=== PATIENT | female | born 1975 | race Caucasian/White ===

== ENCOUNTER 2017-05-15 21:07 | Inpatient (IN) | payer OTHER, MEDICAID ==
[2017-05-15] MEDS: ALBUTEROL 0.083% (NEB) 2.5 MG/3 ML AMP HHN (23:12)
[2017-05-15] MEDS: IPRATROPIUM (NEB) 0.5 MG/2.5 ML AMP INH (23:13)
[2017-05-15] MEDS: SOD CHLORIDE 0.9% 500 ML IV (23:56)
[2017-05-16 00:02] LABS: ADD MAN DIFF? NO
[2017-05-16 00:04] LABS: WHITE BLOOD COUNT 12.6 10^3/ul (4.8-10.8)
[2017-05-16 00:04] LABS: ABNORMAL IP MESSAGE 1; BASOPHIL # 0.1 10^3/ul (0.0-0.1); BASOPHILS % 0.4 % (0.0-2.0); EOSINOPHILS % 0.2 % (0.0-7.0); HEMATOCRIT 39.6 % (37.0-47.0); HEMOGLOBIN 11.5 g/dl (12.0-16.0); LYMPHOCYTES # 2.1 10^3/ul (0.8-2.9); LYMPHOCYTES % 16.7 % (15.0-51.0); MEAN CORPUSCULAR HEMOGLOBIN 21.7 pg (29.0-33.0); MEAN CORPUSCULAR VOLUME 74.9 fl (82.0-101.0); MEAN PLATELET VOLUME 10.2 fl (7.4-10.4); MONOCYTE # 1.3 10^3/ul (0.3-0.9); MONOCYTES % 10.4 % (0.0-11.0); NEUTROPHILS % 71.9 % (39.0-77.0); NUCLEATED RED BLOOD CELLS # 0.1 10^3/ul (0.0-0.0); NUCLEATED RED BLOOD CELLS% 0.5 /100WBC (0.0-0.0); PLATELET COUNT 332 10^3/UL (140-415); RED BLOOD COUNT 5.29 10^6/ul (4.20-5.40); RED CELL DISTRIBUTION WIDTH 25.7 % (11.5-14.5)
[2017-05-16 00:29] LABS: ALANINE AMINOTRANSFERASE 39 IU/L (13-69); ALBUMIN/GLOBULIN RATIO 0.69; ALKALINE PHOSPHATASE 113 IU/L (42-121); ANION GAP 16 (8-16); ASPARTATE AMINO TRANSFERASE 37 IU/L (15-46); BILIRUBIN,INDIRECT 1.3 mg/dl (0-1.1); BILIRUBIN,TOTAL 1.8 mg/dl (0.2-1.3); BLOOD UREA NITROGEN 15 mg/dl (7-20); CALCIUM 8.7 mg/dl (8.4-10.2); CARBON DIOXIDE 23 mmol/L (21-31); CHLORIDE 105 mmol/L (97-110); CREATININE 0.67 mg/dl (0.44-1.00); GLUCOSE 118 mg/dl (70-220); POTASSIUM 4.3 mmol/L (3.5-5.1); SODIUM 140 mmol/L (135-144); TOTAL PROTEIN 7.3 g/dl (6.1-8.1)
[2017-05-16 00:33] LABS: LACTIC ACID 2.2 mmol/L (0.5-2.0)
[2017-05-16 00:34] LABS: POSITIVE DIFF @See below
[2017-05-16 00:38] LABS: B-TYPE NATRIURETIC PEPTIDE 2480 PG/ML (0-125); TROPONIN-I 0.053 ng/ml (0.00-0.12)
[2017-05-16] MEDS: SODIUM CHLORIDE 0.9% 1L BAG IV* (00:48)
[2017-05-16] MEDS: CEFEPIME 2GM/50 ML (PMX) 50 ML IVPB (00:49)
[2017-05-16] MEDS: VANCOMYCIN 1 GM (PMX) 250 ML IVPB (01:18)
[2017-05-16] MEDS ORDERED: SOD CHLORIDE 0.9% 1,000 ML IV (03:30)
[2017-05-16] MEDS ORDERED: SOD CHLORIDE 0.9% 250 ML IV (03:30)
[2017-05-16] MEDS: morphine 2 MG INJ IV ×2 (03:57→21:50)
[2017-05-16 04:32] LABS: LACTIC ACID 2.2 mmol/L (0.5-2.0)
[2017-05-16] MEDS: LACTATED RINGER'S 1,000 ML IV (05:40)
[2017-05-16] MEDS ORDERED: NACL 0.9% 3 ML SYG IV (06:00)
[2017-05-16] MEDS ORDERED: ALBUTEROL/IPRATROPIUM (NEB) 3 ML AMP HHN (06:00)
[2017-05-16] MEDS: CLINDAMYCIN 600 MG/D5W (PMX) 50 ML IVPB ×3 (06:00→14:31)
[2017-05-16 08:11] LABS: ADD MAN DIFF? NO
[2017-05-16 08:14] LABS: ABNORMAL IP MESSAGE 1; BASOPHIL # 0.1 10^3/ul (0.0-0.1); BASOPHILS % 0.4 % (0.0-2.0); EOSINOPHILS # 0.1 10^3/ul (0.0-0.5); EOSINOPHILS % 0.4 % (0.0-7.0); HEMATOCRIT 37.9 % (37.0-47.0); HEMOGLOBIN 11.1 g/dl (12.0-16.0); LYMPHOCYTES # 1.5 10^3/ul (0.8-2.9); MEAN CORPUSCULAR HGB CONC 29.3 g/dl (32.0-37.0); MEAN CORPUSCULAR VOLUME 75.2 fl (82.0-101.0); MEAN PLATELET VOLUME 10.6 fl (7.4-10.4); MONOCYTE # 1.1 10^3/ul (0.3-0.9); MONOCYTES % 9.9 % (0.0-11.0); NEUTROPHIL # 8.4 10^3/ul (1.6-7.5); NEUTROPHILS % 75.9 % (39.0-77.0); NUCLEATED RED BLOOD CELLS% 0.2 /100WBC (0.0-0.0); PLATELET COUNT 327 10^3/UL (140-415); RED BLOOD COUNT 5.04 10^6/ul (4.20-5.40); RED CELL DISTRIBUTION WIDTH 25.2 % (11.5-14.5)
[2017-05-16 08:14] LABS: WHITE BLOOD COUNT 11.1 10^3/ul (4.8-10.8)
[2017-05-16 08:15] LABS: POSITIVE DIFF @See below
[2017-05-16 08:43] LABS: ALANINE AMINOTRANSFERASE 33 IU/L (13-69); ALBUMIN 2.8 g/dl (3.3-4.9); ALBUMIN/GLOBULIN RATIO 0.75; ALKALINE PHOSPHATASE 105 IU/L (42-121); ANION GAP 13 (8-16); ASPARTATE AMINO TRANSFERASE 37 IU/L (15-46); BILIRUBIN,INDIRECT 1.3 mg/dl (0-1.1); BLOOD UREA NITROGEN 14 mg/dl (7-20); CALCIUM 8.4 mg/dl (8.4-10.2); CARBON DIOXIDE 22 mmol/L (21-31); CHLORIDE 108 mmol/L (97-110); CREATININE 0.59 mg/dl (0.44-1.00); GLUCOSE 110 mg/dl (70-220); POTASSIUM 4.3 mmol/L (3.5-5.1); SODIUM 139 mmol/L (135-144); TOTAL PROTEIN 6.5 g/dl (6.1-8.1)
[2017-05-16 08:53] LABS: LACTIC ACID 3.3 mmol/L (0.5-2.0)
[2017-05-16] MEDS ORDERED: VANCOMYCIN IV PER PHARMACY XX (09:00)
[2017-05-16] MEDS: CEFEPIME 1GM/50 ML (PMX) 50 ML IVPB (09:27)
[2017-05-16] MEDS: FUROSEMIDE 20 MG INJ IV ×2 (09:27→14:31)
[2017-05-16] MEDS: HEPARIN 5,000 UNIT/0.5 ML VIAL SC ×2 (09:28→22:10)
[2017-05-16] MEDS: VANCOMYCIN 1 GM 250 ML IVPB ×3 (10:00→11:57)
[2017-05-16] MEDS: CLINDAMYCIN 150 MG CAP PO ×2 (16:00→21:50)
[2017-05-17 01:03] LABS: LACTIC ACID 2.8 mmol/L (0.5-2.0)
[2017-05-17] MEDS: SOD CHLORIDE 0.9% 500 ML IV (01:30)
[2017-05-17] MEDS: GUAIFENESIN/DM 5ML CUP PO (01:30)
[2017-05-17] MEDS: morphine 2 MG INJ IV ×3 (06:06→16:41)
[2017-05-17] MEDS: CLINDAMYCIN 150 MG CAP PO ×3 (06:06→23:03)
[2017-05-17 07:21] LABS: ADD UMIC YES; UR ASCORBIC ACID 40 mg/dL (NEGATIVE); UR BACTERIA FEW /HPF (NONE SEEN); UR BILIRUBIN (Dip) 1+ mg/dL (NEGATIVE); UR BLOOD (Dip) NEGATIVE (NEGATIVE); UR CLARITY SLIGHTLY CLOUDY (CLEAR); UR COLOR AMBER (YELLOW); UR GLUCOSE (Dip) NEGATIVE (NEGATIVE); UR KETONES (Dip) NEGATIVE (NEGATIVE); UR LEUKOCYTE ESTERASE (Dip) NEGATIVE Leu/ul (NEGATIVE); UR MUCUS FEW /HPF (NONE SEEN); UR NITRITE (Dip) NEGATIVE (NEGATIVE); UR RBC 2 /HPF (0-5); UR SPECIFIC GRAVITY (Dip) 1.023 (1.003-1.030); UR SQUAMOUS EPITHELIAL CELL FEW /HPF (FEW); UR TOTAL PROTEIN (Dip) 1+ mg/dl (NEGATIVE); UR UROBILINOGEN (Dip) 2+ mg/dL (NEGATIVE); UR WBC 1 /HPF (0-5)
[2017-05-17 08:04] LABS: ADD MAN DIFF? NO; HAAIG REFLEX REFLEX FILED
[2017-05-17 08:12] LABS: ABNORMAL IP MESSAGE 1; BASOPHILS % 0.4 % (0.0-2.0); EOSINOPHILS # 0.1 10^3/ul (0.0-0.5); EOSINOPHILS % 0.8 % (0.0-7.0); HEMOGLOBIN 11.3 g/dl (12.0-16.0); LYMPHOCYTES # 1.2 10^3/ul (0.8-2.9); LYMPHOCYTES % 11.6 % (15.0-51.0); MEAN CORPUSCULAR HEMOGLOBIN 21.7 pg (29.0-33.0); MEAN PLATELET VOLUME 10.3 fl (7.4-10.4); MONOCYTE # 1.1 10^3/ul (0.3-0.9); MONOCYTES % 10.8 % (0.0-11.0); NEUTROPHIL # 8.1 10^3/ul (1.6-7.5); NUCLEATED RED BLOOD CELLS # 0.1 10^3/ul (0.0-0.0); NUCLEATED RED BLOOD CELLS% 0.5 /100WBC (0.0-0.0); PLATELET COUNT 279 10^3/UL (140-415); RED CELL DISTRIBUTION WIDTH 25.5 % (11.5-14.5)
[2017-05-17 08:12] LABS: WHITE BLOOD COUNT 10.6 10^3/ul (4.8-10.8)
[2017-05-17 08:19] LABS: POSITIVE DIFF @See below
[2017-05-17 08:30] LABS: LACTIC ACID 2.4 mmol/L (0.5-2.0)
[2017-05-17 08:35] LABS: IRON 34 ug/dl (35-150)
[2017-05-17 08:38] LABS: ALANINE AMINOTRANSFERASE 32 IU/L (13-69); ALBUMIN 2.4 g/dl (3.3-4.9); ALBUMIN/GLOBULIN RATIO 0.66; ALKALINE PHOSPHATASE 103 IU/L (42-121); ANION GAP 16 (8-16); ASPARTATE AMINO TRANSFERASE 28 IU/L (15-46); BILIRUBIN,INDIRECT 1.2 mg/dl (0-1.1); BILIRUBIN,TOTAL 1.8 mg/dl (0.2-1.3); BLOOD UREA NITROGEN 14 mg/dl (7-20); CALCIUM 8.4 mg/dl (8.4-10.2); CARBON DIOXIDE 22 mmol/L (21-31); CHLORIDE 105 mmol/L (97-110); CREATININE 0.59 mg/dl (0.44-1.00); GLUCOSE 116 mg/dl (70-220); SODIUM 139 mmol/L (135-144)
[2017-05-17 08:40] LABS: ANION GAP 14 (8-16); BLOOD UREA NITROGEN 15 mg/dl (7-20); CALCIUM 8.3 mg/dl (8.4-10.2); CARBON DIOXIDE 20 mmol/L (21-31); CHLORIDE 107 mmol/L (97-110); CREATININE 0.59 mg/dl (0.44-1.00); GLUCOSE 113 mg/dl (70-220); MAGNESIUM 1.7 mg/dl (1.7-2.5); PHOSPHORUS 2.3 mg/dl (2.5-4.9); POTASSIUM 4.6 mmol/L (3.5-5.1); SODIUM 136 mmol/L (135-144)
[2017-05-17 08:44] LABS: % IRON SATURATION 9 % SAT (22-52); TOTAL IRON BINDING CAPACITY 360 ug/dl (241-421)
[2017-05-17] MEDS: HEPARIN 5,000 UNIT/0.5 ML VIAL SC ×2 (09:00→21:24)
[2017-05-17] MEDS: FUROSEMIDE 20 MG INJ IV ×2 (09:00→17:39)
[2017-05-17 09:15] LABS: HEPATITIS B SURFACE ANTIGEN NEGATIVE (NEGATIVE)
[2017-05-17 09:24] LABS: HEPATITIS B CORE ANTIBODY NEGATIVE (NEGATIVE); HEPATITIS C VIRAL ANTIBODY NEGATIVE (NEGATIVE)
[2017-05-17] MEDS: ACETAMINOPHEN 325 MG TAB PO (21:08)
[2017-05-18] MEDS: morphine 2 MG INJ IV ×3 (02:19→23:16)
[2017-05-18 06:51] LABS: ADD MAN DIFF? NO
[2017-05-18 06:56] LABS: WHITE BLOOD COUNT 11.2 10^3/ul (4.8-10.8)
[2017-05-18 06:56] LABS: ABNORMAL IP MESSAGE 1; BASOPHILS % 0.4 % (0.0-2.0); EOSINOPHILS # 0.1 10^3/ul (0.0-0.5); EOSINOPHILS % 0.6 % (0.0-7.0); HEMATOCRIT 38.4 % (37.0-47.0); HEMOGLOBIN 11.4 g/dl (12.0-16.0); LYMPHOCYTES # 1.4 10^3/ul (0.8-2.9); LYMPHOCYTES % 12.4 % (15.0-51.0); MEAN CORPUSCULAR HEMOGLOBIN 22.2 pg (29.0-33.0); MEAN CORPUSCULAR HGB CONC 29.7 g/dl (32.0-37.0); MEAN CORPUSCULAR VOLUME 74.7 fl (82.0-101.0); MEAN PLATELET VOLUME 10.3 fl (7.4-10.4); MONOCYTE # 1.2 10^3/ul (0.3-0.9); MONOCYTES % 10.2 % (0.0-11.0); NEUTROPHIL # 8.5 10^3/ul (1.6-7.5); NEUTROPHILS % 75.8 % (39.0-77.0); NUCLEATED RED BLOOD CELLS # 0.1 10^3/ul (0.0-0.0); NUCLEATED RED BLOOD CELLS% 0.6 /100WBC (0.0-0.0); PLATELET COUNT 299 10^3/UL (140-415); RED BLOOD COUNT 5.14 10^6/ul (4.20-5.40); RED CELL DISTRIBUTION WIDTH 25.8 % (11.5-14.5)
[2017-05-18] MEDS: FUROSEMIDE 20 MG INJ IV (06:56)
[2017-05-18] MEDS: CLINDAMYCIN 150 MG CAP PO ×3 (06:57→21:36)
[2017-05-18 06:59] LABS: POSITIVE DIFF @See below
[2017-05-18 07:30] LABS: ANION GAP 11 (8-16); BLOOD UREA NITROGEN 13 mg/dl (7-20); CALCIUM 8.1 mg/dl (8.4-10.2); CARBON DIOXIDE 24 mmol/L (21-31); CHLORIDE 105 mmol/L (97-110); CREATININE 0.62 mg/dl (0.44-1.00); GLUCOSE 113 mg/dl (70-220); MAGNESIUM 1.8 mg/dl (1.7-2.5); POTASSIUM 3.7 mmol/L (3.5-5.1); SODIUM 136 mmol/L (135-144)
[2017-05-18 08:01] LABS: HIV 1&2 ANTIBODY NEGATIVE (NEGATIVE)
[2017-05-18] MEDS: HEPARIN 5,000 UNIT/0.5 ML VIAL SC ×2 (09:00→21:52)
[2017-05-18 13:53] LABS: CREATININE,URINE RANDOM 119.03 mg/dl (20-320)
[2017-05-18] MEDS ORDERED: BARIUM SULF 2% 450 ML BTL (BERRY SMOOTHIE) PO (14:30)
[2017-05-18] MEDS: POLYETHYLENE GLYCOL 17 GM PACKET PO (14:34)
[2017-05-18 15:49] LABS: RHEUMATOID FACTOR NEGATIVE (NEGATIVE)
[2017-05-18] MEDS: FUROSEMIDE 40 MG INJ IV (18:34)
[2017-05-18 19:27] LABS: COLLECTION PERIOD 24 hrs
[2017-05-18 20:04] LABS: VOLUME 2750 mls
[2017-05-19 03:38] LABS: PROTEIN, TOTAL 5.8 g/dL (6.1-8.1)
[2017-05-19] MEDS: CLINDAMYCIN 150 MG CAP PO ×3 (06:55→21:28)
[2017-05-19] MEDS: FUROSEMIDE 40 MG INJ IV ×2 (06:56→18:16)
[2017-05-19 07:49] LABS: ADD MAN DIFF? NO
[2017-05-19 07:52] LABS: ABNORMAL IP MESSAGE 1; BASOPHILS % 0.2 % (0.0-2.0); EOSINOPHILS % 0.2 % (0.0-7.0); HEMATOCRIT 37.2 % (37.0-47.0); HEMOGLOBIN 11.2 g/dl (12.0-16.0); LYMPHOCYTES # 1.4 10^3/ul (0.8-2.9); LYMPHOCYTES % 10.6 % (15.0-51.0); MEAN CORPUSCULAR HEMOGLOBIN 22.1 pg (29.0-33.0); MEAN CORPUSCULAR HGB CONC 30.1 g/dl (32.0-37.0); MEAN CORPUSCULAR VOLUME 73.4 fl (82.0-101.0); MEAN PLATELET VOLUME 10.5 fl (7.4-10.4); MONOCYTE # 1.3 10^3/ul (0.3-0.9); MONOCYTES % 9.3 % (0.0-11.0); NEUTROPHIL # 10.6 10^3/ul (1.6-7.5); NEUTROPHILS % 79.1 % (39.0-77.0); NUCLEATED RED BLOOD CELLS # 0.1 10^3/ul (0.0-0.0); NUCLEATED RED BLOOD CELLS% 0.5 /100WBC (0.0-0.0); PLATELET COUNT 271 10^3/UL (140-415); RED BLOOD COUNT 5.07 10^6/ul (4.20-5.40); RED CELL DISTRIBUTION WIDTH 26.6 % (11.5-14.5)
[2017-05-19 07:52] LABS: WHITE BLOOD COUNT 13.4 10^3/ul (4.8-10.8)
[2017-05-19 07:55] LABS: POSITIVE DIFF @See below
[2017-05-19] MEDS: morphine 2 MG INJ IV (08:13)
[2017-05-19] MEDS: HEPARIN 5,000 UNIT/0.5 ML VIAL SC ×2 (08:14→22:17)
[2017-05-19] MEDS: POLYETHYLENE GLYCOL 17 GM PACKET PO ×2 (08:20→11:07)
[2017-05-19 08:24] LABS: ALANINE AMINOTRANSFERASE 30 IU/L (13-69); ALBUMIN 2.6 g/dl (3.3-4.9); ALBUMIN/GLOBULIN RATIO 0.65; ALKALINE PHOSPHATASE 128 IU/L (42-121); ANION GAP 18 (8-16); ASPARTATE AMINO TRANSFERASE 37 IU/L (15-46); BILIRUBIN,TOTAL 1.8 mg/dl (0.2-1.3); BLOOD UREA NITROGEN 12 mg/dl (7-20); CARBON DIOXIDE 24 mmol/L (21-31); CHLORIDE 100 mmol/L (97-110); CREATININE 0.56 mg/dl (0.44-1.00); GLUCOSE 105 mg/dl (70-220); POTASSIUM 3.5 mmol/L (3.5-5.1); SODIUM 138 mmol/L (135-144); TOTAL PROTEIN 6.6 g/dl (6.1-8.1)
[2017-05-19] MEDS: SENNA TAB PO ×2 (11:07→21:29)
[2017-05-19 14:52] LABS: ANA SCREEN NEGATIVE (NEGATIVE)
[2017-05-19 17:06] LABS: ALBUMIN 2.1 g/dL (3.8-4.8); ALPHA-1-GLOBULINS 0.5 g/dL (0.2-0.3); ALPHA-2-GLOBULINS 0.8 g/dL (0.5-0.9); BETA 2 GLOBULINS 0.4 g/dL (0.2-0.5); BETA GLOBULINS 0.5 g/dL (0.4-0.6); GAMMA GLOBULINS 1.7 g/dL (0.8-1.7)
[2017-05-19] MEDS: ACETAMINOPHEN 325 MG TAB PO (18:16)
[2017-05-20] MEDS: HYDROCODONE/APAP (5/325) TAB PO (05:49)
[2017-05-20] MEDS: CLINDAMYCIN 150 MG CAP PO (05:49)
[2017-05-20] MEDS: FUROSEMIDE 40 MG INJ IV ×2 (05:50→18:19)
[2017-05-20 08:05] LABS: ANION GAP 17 (8-16); BLOOD UREA NITROGEN 11 mg/dl (7-20); CALCIUM 8.1 mg/dl (8.4-10.2); CARBON DIOXIDE 24 mmol/L (21-31); CHLORIDE 99 mmol/L (97-110); CREATININE 0.54 mg/dl (0.44-1.00); GLUCOSE 126 mg/dl (70-220); MAGNESIUM 1.7 mg/dl (1.7-2.5); POTASSIUM 3.1 mmol/L (3.5-5.1); SODIUM 137 mmol/L (135-144)
[2017-05-20] MEDS: POLYETHYLENE GLYCOL 17 GM PACKET PO (09:14)
[2017-05-20] MEDS: SENNA TAB PO ×2 (09:14→20:49)
[2017-05-20] MEDS: HEPARIN 5,000 UNIT/0.5 ML VIAL SC ×2 (09:18→20:54)
[2017-05-20] MEDS: POTASSIUM CHLORIDE (SR) 20 MEQ TAB PO ×2 (10:48→20:49)
[2017-05-20] MEDS ORDERED: HYDROCORTISONE 1% 28.35 GM OINT TOP (15:30)
[2017-05-20] MEDS: HYDROCORTISONE 1% 28.35 GM OINT TOP (16:42)
[2017-05-20] MEDS: DIPHENHYDRAMINE 25 MG CAP PO (20:49)
[2017-05-21] MEDS: HYDROCODONE/APAP (5/325) TAB PO ×2 (04:52→21:33)
[2017-05-21] MEDS: FUROSEMIDE 40 MG INJ IV ×2 (05:08→18:56)
[2017-05-21 09:00] LABS: ANION GAP 15 (8-16); BLOOD UREA NITROGEN 13 mg/dl (7-20); CALCIUM 8.2 mg/dl (8.4-10.2); CARBON DIOXIDE 27 mmol/L (21-31); CHLORIDE 98 mmol/L (97-110); GLUCOSE 127 mg/dl (70-220); MAGNESIUM 1.7 mg/dl (1.7-2.5); POTASSIUM 3.7 mmol/L (3.5-5.1); SODIUM 136 mmol/L (135-144)
[2017-05-21] MEDS: POLYETHYLENE GLYCOL 17 GM PACKET PO (09:11)
[2017-05-21] MEDS: SENNA TAB PO ×2 (09:11→21:01)
[2017-05-21] MEDS: HYDROCORTISONE 1% 28.35 GM OINT TOP (09:11)
[2017-05-21] MEDS: HEPARIN 5,000 UNIT/0.5 ML VIAL SC ×2 (09:20→21:05)
[2017-05-21 17:24] LABS: ANTI-DNA (DOUBLE STRANDED) <95 U/mL (< 301)
[2017-05-21] MEDS: DIPHENHYDRAMINE 25 MG CAP PO (21:32)
[2017-05-22] MEDS: FUROSEMIDE 40 MG INJ IV ×2 (06:36→18:23)
[2017-05-22] MEDS: SENNA TAB PO ×2 (08:51→20:13)
[2017-05-22] MEDS: POLYETHYLENE GLYCOL 17 GM PACKET PO (08:51)
[2017-05-22] MEDS: HYDROCORTISONE 1% 28.35 GM OINT TOP (08:52)
[2017-05-22] MEDS: HEPARIN 5,000 UNIT/0.5 ML VIAL SC ×2 (09:09→20:13)
[2017-05-22 11:36] LABS: ANION GAP 15 (8-16); BLOOD UREA NITROGEN 12 mg/dl (7-20); CALCIUM 7.9 mg/dl (8.4-10.2); CARBON DIOXIDE 25 mmol/L (21-31); CHLORIDE 99 mmol/L (97-110); CREATININE 0.59 mg/dl (0.44-1.00); GLUCOSE 120 mg/dl (70-220); MAGNESIUM 1.6 mg/dl (1.7-2.5); POTASSIUM 3.7 mmol/L (3.5-5.1); SODIUM 135 mmol/L (135-144)
[2017-05-22] MEDS: HYDROCODONE/APAP (5/325) TAB PO (20:14)
[2017-05-23 05:17] LABS: ADD MAN DIFF? NO
[2017-05-23 05:20] LABS: WHITE BLOOD COUNT 12.1 10^3/ul (4.8-10.8)
[2017-05-23 05:20] LABS: ABNORMAL IP MESSAGE 1; BASOPHILS % 0.2 % (0.0-2.0); EOSINOPHILS % 0.2 % (0.0-7.0); HEMATOCRIT 39.1 % (37.0-47.0); HEMOGLOBIN 11.7 g/dl (12.0-16.0); LYMPHOCYTES # 1.6 10^3/ul (0.8-2.9); LYMPHOCYTES % 13.1 % (15.0-51.0); MEAN CORPUSCULAR HEMOGLOBIN 22.1 pg (29.0-33.0); MEAN CORPUSCULAR HGB CONC 29.9 g/dl (32.0-37.0); MEAN CORPUSCULAR VOLUME 73.8 fl (82.0-101.0); MEAN PLATELET VOLUME 10.4 fl (7.4-10.4); MONOCYTE # 1.1 10^3/ul (0.3-0.9); MONOCYTES % 8.8 % (0.0-11.0); NEUTROPHIL # 9.3 10^3/ul (1.6-7.5); NUCLEATED RED BLOOD CELLS% 0.3 /100WBC (0.0-0.0); PLATELET COUNT 250 10^3/UL (140-415); RED CELL DISTRIBUTION WIDTH 26.9 % (11.5-14.5)
[2017-05-23 05:24] LABS: POSITIVE DIFF @See below
[2017-05-23] MEDS: FUROSEMIDE 40 MG INJ IV ×2 (05:42→18:00)
[2017-05-23 06:12] LABS: ANION GAP 15 (8-16); BLOOD UREA NITROGEN 11 mg/dl (7-20); CALCIUM 8.3 mg/dl (8.4-10.2); CARBON DIOXIDE 29 mmol/L (21-31); CHLORIDE 98 mmol/L (97-110); CREATININE 0.66 mg/dl (0.44-1.00); GLUCOSE 92 mg/dl (70-220); POTASSIUM 3.6 mmol/L (3.5-5.1); SODIUM 138 mmol/L (135-144)
[2017-05-23] MEDS: SENNA TAB PO ×2 (09:02→20:20)
[2017-05-23] MEDS: HEPARIN 5,000 UNIT/0.5 ML VIAL SC ×2 (09:24→20:20)
[2017-05-23] MEDS: HYDROCORTISONE 1% 28.35 GM OINT TOP (13:48)
[2017-05-23] MEDS: SOD FERRIC GLUC COMPLX 125 MG in SOD CHLORIDE 0.9% 100 ML IVPB (17:00)
[2017-05-23] MEDS: HYDROCODONE/APAP (5/325) TAB PO (17:20)
[2017-05-24 03:43] LABS: AADO2 Arterial 136.3 mmHg (7.0-24.0); Allen Test ACCEPTAB; Arterial Base Excess 8.7 mmol/L (-3.0-3); Arterial Blood Gas Oxygen Sat 90.8 mmHG (95.0-98.0); Arterial COHb 1.3 % (0.0-3.0); Arterial Fraction of Oxyhgb 89.3 % (93.0-99.0); Arterial HCO3 31.5 mmol/L (22.0-26.0); Arterial MetHb 0.3 % (0.0-1.5); Arterial Total Hemglobin 12.2 g/dl (12.0-18.0); Arterial pCO2 36.9 mmhg (35-45); MODE NASAL CANNULA; Site Right Radial
[2017-05-24] MEDS: ALBUMIN HUMAN 25% 100 ML IV (04:56)
[2017-05-24 05:39] LABS: ADD MAN DIFF? NO
[2017-05-24 05:44] LABS: WHITE BLOOD COUNT 11.8 10^3/ul (4.8-10.8)
[2017-05-24 05:44] LABS: ABNORMAL IP MESSAGE 1; BASOPHILS % 0.3 % (0.0-2.0); HEMATOCRIT 35.9 % (37.0-47.0); HEMOGLOBIN 10.6 g/dl (12.0-16.0); LYMPHOCYTES # 1.1 10^3/ul (0.8-2.9); LYMPHOCYTES % 9.3 % (15.0-51.0); MEAN CORPUSCULAR HEMOGLOBIN 21.7 pg (29.0-33.0); MEAN CORPUSCULAR HGB CONC 29.5 g/dl (32.0-37.0); MEAN CORPUSCULAR VOLUME 73.6 fl (82.0-101.0); MEAN PLATELET VOLUME 10.5 fl (7.4-10.4); MONOCYTE # 0.9 10^3/ul (0.3-0.9); MONOCYTES % 7.4 % (0.0-11.0); NEUTROPHIL # 9.7 10^3/ul (1.6-7.5); NEUTROPHILS % 82.1 % (39.0-77.0); NUCLEATED RED BLOOD CELLS% 0.3 /100WBC (0.0-0.0); PLATELET COUNT 241 10^3/UL (140-415); RED BLOOD COUNT 4.88 10^6/ul (4.20-5.40); RED CELL DISTRIBUTION WIDTH 26.6 % (11.5-14.5)
[2017-05-24 05:46] LABS: POSITIVE DIFF @See below
[2017-05-24] MEDS: FUROSEMIDE 40 MG INJ IV ×2 (06:34→18:47)
[2017-05-24 06:43] LABS: ANION GAP 11 (8-16); BLOOD UREA NITROGEN 13 mg/dl (7-20); CARBON DIOXIDE 32 mmol/L (21-31); CHLORIDE 97 mmol/L (97-110); CREATININE 0.64 mg/dl (0.44-1.00); GLUCOSE 117 mg/dl (70-220); MAGNESIUM 1.8 mg/dl (1.7-2.5); PHOSPHORUS 2.7 mg/dl (2.5-4.9); POTASSIUM 3.6 mmol/L (3.5-5.1); SODIUM 136 mmol/L (135-144)
[2017-05-24] MEDS: SENNA TAB PO ×2 (08:49→20:13)
[2017-05-24] MEDS: HEPARIN 5,000 UNIT/0.5 ML VIAL SC ×2 (08:54→20:21)
[2017-05-24] MEDS: HYDROCORTISONE 1% 28.35 GM OINT TOP (09:05)
[2017-05-24] MEDS: SOD FERRIC GLUC COMPLX 125 MG in SOD CHLORIDE 0.9% 100 ML IVPB (16:12)
[2017-05-24] MEDS: HYDROCODONE/APAP (5/325) TAB PO (20:40)
[2017-05-25 05:43] LABS: ADD MAN DIFF? NO
[2017-05-25 05:46] LABS: WHITE BLOOD COUNT 12.4 10^3/ul (4.8-10.8)
[2017-05-25 05:46] LABS: ABNORMAL IP MESSAGE 1; BASOPHILS % 0.3 % (0.0-2.0); EOSINOPHILS % 0.2 % (0.0-7.0); HEMATOCRIT 36.2 % (37.0-47.0); HEMOGLOBIN 10.8 g/dl (12.0-16.0); LYMPHOCYTES # 1.2 10^3/ul (0.8-2.9); LYMPHOCYTES % 9.9 % (15.0-51.0); MEAN CORPUSCULAR HEMOGLOBIN 22.2 pg (29.0-33.0); MEAN CORPUSCULAR HGB CONC 29.8 g/dl (32.0-37.0); MEAN CORPUSCULAR VOLUME 74.5 fl (82.0-101.0); MONOCYTES % 8.4 % (0.0-11.0); NEUTROPHILS % 80.4 % (39.0-77.0); NUCLEATED RED BLOOD CELLS # 0.1 10^3/ul (0.0-0.0); NUCLEATED RED BLOOD CELLS% 0.5 /100WBC (0.0-0.0); PLATELET COUNT 241 10^3/UL (140-415); RED BLOOD COUNT 4.86 10^6/ul (4.20-5.40); RED CELL DISTRIBUTION WIDTH 26.6 % (11.5-14.5)
[2017-05-25 05:55] LABS: POSITIVE DIFF @See below
[2017-05-25] MEDS: FUROSEMIDE 40 MG INJ IV ×2 (06:08→18:52)
[2017-05-25 06:45] LABS: B-TYPE NATRIURETIC PEPTIDE 1450 PG/ML (0-125)
[2017-05-25 06:47] LABS: ANION GAP 14 (8-16); BLOOD UREA NITROGEN 13 mg/dl (7-20); CALCIUM 8.2 mg/dl (8.4-10.2); CARBON DIOXIDE 31 mmol/L (21-31); CHLORIDE 97 mmol/L (97-110); CREATININE 0.65 mg/dl (0.44-1.00); GLUCOSE 95 mg/dl (70-220); POTASSIUM 3.9 mmol/L (3.5-5.1); SODIUM 138 mmol/L (135-144)
[2017-05-25] MEDS: HYDROCORTISONE 1% 28.35 GM OINT TOP (08:49)
[2017-05-25] MEDS: SENNA TAB PO ×2 (08:49→20:35)
[2017-05-25] MEDS: HEPARIN 5,000 UNIT/0.5 ML VIAL SC ×2 (08:51→20:37)
[2017-05-25] MEDS: ACETAMINOPHEN 325 MG TAB PO (15:46)
[2017-05-25] MEDS: ONDANSETRON 4 MG INJ IV (15:46)
[2017-05-25] MEDS: SOD FERRIC GLUC COMPLX 125 MG in SOD CHLORIDE 0.9% 100 ML IVPB (17:02)
[2017-05-25] MEDS: HYDROCODONE/APAP (5/325) TAB PO (23:51)
[2017-05-26 05:36] LABS: ADD MAN DIFF? NO
[2017-05-26] MEDS: FUROSEMIDE 40 MG INJ IV ×2 (05:39→19:04)
[2017-05-26 05:43] LABS: WHITE BLOOD COUNT 12.9 10^3/ul (4.8-10.8)
[2017-05-26 05:43] LABS: ABNORMAL IP MESSAGE 1; BASOPHIL # 0.1 10^3/ul (0.0-0.1); BASOPHILS % 0.4 % (0.0-2.0); EOSINOPHILS % 0.2 % (0.0-7.0); HEMATOCRIT 35.4 % (37.0-47.0); HEMOGLOBIN 10.7 g/dl (12.0-16.0); LYMPHOCYTES # 1.4 10^3/ul (0.8-2.9); LYMPHOCYTES % 10.4 % (15.0-51.0); MEAN CORPUSCULAR HEMOGLOBIN 22.6 pg (29.0-33.0); MEAN CORPUSCULAR HGB CONC 30.2 g/dl (32.0-37.0); MEAN CORPUSCULAR VOLUME 74.7 fl (82.0-101.0); MEAN PLATELET VOLUME 10.5 fl (7.4-10.4); MONOCYTE # 0.9 10^3/ul (0.3-0.9); NEUTROPHIL # 10.5 10^3/ul (1.6-7.5); NUCLEATED RED BLOOD CELLS # 0.1 10^3/ul (0.0-0.0); NUCLEATED RED BLOOD CELLS% 0.6 /100WBC (0.0-0.0); PLATELET COUNT 261 10^3/UL (140-415); RED BLOOD COUNT 4.74 10^6/ul (4.20-5.40); RED CELL DISTRIBUTION WIDTH 26.8 % (11.5-14.5)
[2017-05-26 06:00] LABS: POSITIVE DIFF @See below
[2017-05-26 06:58] LABS: ANION GAP 18 (8-16); BLOOD UREA NITROGEN 16 mg/dl (7-20); CALCIUM 8.2 mg/dl (8.4-10.2); CARBON DIOXIDE 26 mmol/L (21-31); CHLORIDE 98 mmol/L (97-110); CREATININE 0.65 mg/dl (0.44-1.00); GLUCOSE 98 mg/dl (70-220); POTASSIUM 3.8 mmol/L (3.5-5.1); SODIUM 138 mmol/L (135-144)
[2017-05-26] MEDS ORDERED: ALBUTEROL 0.083% (NEB) 2.5 MG/3 ML AMP (07:00)
[2017-05-26] MEDS: SENNA TAB PO ×2 (09:42→20:39)
[2017-05-26] MEDS: HYDROCORTISONE 1% 28.35 GM OINT TOP (09:44)
[2017-05-26] MEDS: HEPARIN 5,000 UNIT/0.5 ML VIAL SC ×2 (09:46→20:41)
[2017-05-26 14:24] LABS: ADD UMIC NO; UR ASCORBIC ACID 40 mg/dL (NEGATIVE); UR BACTERIA FEW /HPF (NONE SEEN); UR BILIRUBIN (Dip) NEGATIVE (NEGATIVE); UR BLOOD (Dip) NEGATIVE (NEGATIVE); UR CLARITY SLIGHTLY CLOUDY (CLEAR); UR COLOR AMBER (YELLOW); UR GLUCOSE (Dip) NEGATIVE (NEGATIVE); UR KETONES (Dip) NEGATIVE (NEGATIVE); UR LEUKOCYTE ESTERASE (Dip) NEGATIVE Leu/ul (NEGATIVE); UR MUCUS FEW /HPF (NONE SEEN); UR NITRITE (Dip) NEGATIVE (NEGATIVE); UR RBC 1 /HPF (0-5); UR SPECIFIC GRAVITY (Dip) 1.013 (1.003-1.030); UR TOTAL PROTEIN (Dip) NEGATIVE (NEGATIVE); UR UROBILINOGEN (Dip) 2+ mg/dL (NEGATIVE); UR WBC 18 /HPF (0-5)
[2017-05-26] MEDS: HYDROCODONE/APAP (5/325) TAB PO (17:00)
[2017-05-27] MEDS: HYDROCODONE/APAP (5/325) TAB PO (01:44)
[2017-05-27 05:36] LABS: ADD MAN DIFF? NO
[2017-05-27] MEDS: FUROSEMIDE 40 MG INJ IV ×2 (05:37→08:56)
[2017-05-27 05:43] LABS: ABNORMAL IP MESSAGE 1; BASOPHILS % 0.3 % (0.0-2.0); EOSINOPHILS % 0.1 % (0.0-7.0); HEMATOCRIT 34.8 % (37.0-47.0); HEMOGLOBIN 10.5 g/dl (12.0-16.0); LYMPHOCYTES # 1.5 10^3/ul (0.8-2.9); LYMPHOCYTES % 10.7 % (15.0-51.0); MEAN CORPUSCULAR HEMOGLOBIN 22.6 pg (29.0-33.0); MEAN CORPUSCULAR HGB CONC 30.2 g/dl (32.0-37.0); MEAN CORPUSCULAR VOLUME 74.8 fl (82.0-101.0); MEAN PLATELET VOLUME 10.2 fl (7.4-10.4); MONOCYTE # 1.1 10^3/ul (0.3-0.9); NEUTROPHIL # 10.8 10^3/ul (1.6-7.5); NEUTROPHILS % 79.8 % (39.0-77.0); NUCLEATED RED BLOOD CELLS # 0.1 10^3/ul (0.0-0.0); NUCLEATED RED BLOOD CELLS% 0.4 /100WBC (0.0-0.0); PLATELET COUNT 291 10^3/UL (140-415); RED BLOOD COUNT 4.65 10^6/ul (4.20-5.40); RED CELL DISTRIBUTION WIDTH 26.8 % (11.5-14.5)
[2017-05-27 05:43] LABS: WHITE BLOOD COUNT 13.5 10^3/ul (4.8-10.8)
[2017-05-27 05:58] LABS: POSITIVE DIFF @See below
[2017-05-27] MEDS ORDERED: LIDOCAINE 1% (MDV) 20 ML INJ (06:09)
[2017-05-27] MEDS ORDERED: IODIXANOL LOCM 100 ML BTL (06:09)
[2017-05-27 06:23] LABS: ANION GAP 17 (8-16); BLOOD UREA NITROGEN 19 mg/dl (7-20); CALCIUM 8.5 mg/dl (8.4-10.2); CARBON DIOXIDE 28 mmol/L (21-31); CHLORIDE 96 mmol/L (97-110); CREATININE 0.69 mg/dl (0.44-1.00); GLUCOSE 89 mg/dl (70-220); POTASSIUM 3.6 mmol/L (3.5-5.1); SODIUM 137 mmol/L (135-144)
[2017-05-27] MEDS ORDERED: FENTAnyl 50 MCG/ML VIAL (06:28)
[2017-05-27] MEDS ORDERED: MIDAZOLAM 1 MG/ML 2 ML INJ (06:28)
[2017-05-27 07:14] LABS: Arterial COHb 0.4 % (0.0-3.0); Arterial Fraction of Oxyhgb 37.6 % (93.0-99.0); Arterial MetHb 0.6 % (0.0-1.5); Arterial Total Hemglobin 11.3 g/dl (12.0-18.0); MODE ROOM AIR; Sample Type BLMV; Site PUL ART LINE
[2017-05-27] MEDS: HYDROCORTISONE 1% 28.35 GM OINT TOP (08:55)
[2017-05-27] MEDS: SENNA TAB PO (08:56)
[2017-05-27] MEDS: HEPARIN 5,000 UNIT/0.5 ML VIAL SC (09:20)
== END 2017-05-27 17:45 | disposition home health service (06) | DRG 287 ==
LOC: TEL 05-16 01:07 → FTE 21:07 → MS2 05-21 13:55
PROC: 4A023N6 Measurement of Cardiac Sampling and Pressure, Right Heart, Percutaneous Approach (ICD-10-PCS; principal; 2017-05-27 06:30)
DX: I50.811 Acute right heart failure (principal); I27.20 Pulmonary hypertension, unspecified; E87.2 Acidosis; L03.115 Cellulitis of right lower limb; L03.116 Cellulitis of left lower limb; Z68.42 Body mass index [BMI] 45.0-49.9, adult; L97.919 Non-pressure chronic ulcer of unspecified part of right lower leg with unspecified severity; L97.929 Non-pressure chronic ulcer of unspecified part of left lower leg with unspecified severity; I36.1 Nonrheumatic tricuspid (valve) insufficiency; E88.09 Other disorders of plasma-protein metabolism, not elsewhere classified; E66.01 Morbid (severe) obesity due to excess calories; K13.29 Other disturbances of oral epithelium, including tongue; G47.33 Obstructive sleep apnea (adult) (pediatric); J06.9 Acute upper respiratory infection, unspecified; D50.9 Iron deficiency anemia, unspecified; I83.009 Varicose veins of unspecified lower extremity with ulcer of unspecified site; F15.11 Other stimulant abuse, in remission; R09.02 Hypoxemia
CPT/HCPCS: 36600; 71045; 71250; 74176; 76705; 78582; 80048; 80053; 81001; 81003; 82728; 82803; 83540; 83605; 83735; 83880; 84100; 84155; 84156; 84165; 84443; 84484; 85025; 86038; 86226; 86430; 86703; 86704; 86709; 86803; 87040; 87086; 87340; 87400; 93005; 93306; 93451; 93970; 94060; 94640; 94664; 94726; 94729; 96374; 96375; 99291-25; J1940